=== PATIENT | male | born 1970 | race Caucasian/White ===

== ENCOUNTER → 2019-11-14 | Outpatient (CLI) | payer SELFPAY ==
--- NOTE | 2019-11-14 11:49 | Diagnostic Imaging Report ---
EXAMINATION: Right upper extremity MRI from 11/14/2019. TECHNIQUE: Multiplanar, multisequence non contrast-enhanced MRI of the right upper extremity was accomplished. INDICATION: Right shoulder pain for two years, no known injuries. FINDINGS: Diffuse abnormal signal intensity noted throughout the supraspinatus tendon at the greater tuberosity. This appears to represent a deep bursal-sided partial-thickness tear. Extension through the articular surface is not visualized. The focal defect measures approximately 13 mm in transverse dimension. The infraspinatus tendon is intact. The subscapularis tendon demonstrates abnormal signal intensity near the lesser tuberosity, most consistent with tendinosis. No full-thickness tear in the region is appreciated. The long head of the biceps tendon lies in the bicipital groove. It appears intact. The biceps tendon anchor is intact. Degenerative signal within the superior labrum is noted with no obvious tears on this noncontrast examination. There is minimal fluid within the subdeltoid subacromial bursa. Muscle volume is preserved. Visualized axilla is unremarkable. IMPRESSION: 1. Deep bursal-sided partial tear of the anterior supraspinatus tendon without definite full-thickness extension. Infraspinatus is intact. 2. Tendinosis of the subscapularis tendon. Other incidental findings, as above. Dictated by: Dictated on workstation # [id number]
== END ==
LOC: RAD 09:02
PROVIDERS: ATTEND Nurse Practitioner
DX: M75.121 Complete rotator cuff tear or rupture of right shoulder, not specified as traumatic (principal); M75.81 Other shoulder lesions, right shoulder
CPT/HCPCS: 73221

== ENCOUNTER 2022-10-20 05:34 | Outpatient (CLI) | payer BC ==
[~2022-10-20] VITALS: Ht 182.8 cm; Wt 90.0 kg
[2022-10-20] MEDS ORDERED: ROPI1TAB PO (15:59)
== END 2022-10-20 16:06 | disposition home or self-care (01) ==
LOC: PREOP 05:34
PROVIDERS: ATTEND Surgery
DX: Z01.818 Encounter for other preprocedural examination (principal)

== ENCOUNTER 2022-10-26 08:58 | Day surgery (SDC) | payer BC ==
[2022-10-26] VITALS (9 sets, daily range): BP systolic 106–130; BP diastolic 66–77
[~2022-10-26] VITALS: Ht 182 cm; Wt 90.0 kg
[~2022-10-26 08:58] MED LIST: ROPI1TAB PO
--- NOTE | 2022-10-26 10:27 | Progress Note-Pre Operative ---
Pre-Operative Progress Note Date of Available H&P: Oct 18, 2022 Date H&P Reviewed: Oct 26, 2022 Time H&P Reviewed: 10:24 History & Physical: H&P Reviewed, Patient Examed, No changes noted Pre-Operative Diagnosis: Right shoulder basal cell CA, site marked THA CENTENO DO Oct 26, 2022 10:26
[2022-10-26] MEDS ORDERED: ceFAZolin INJECTION 2,000 MG ONE (10:44)
[2022-10-26] MEDS ORDERED: NS (IVPB) 50 ML ONE (10:44)
[2022-10-26] MEDS ORDERED: ceFAZolin INJECTION 2,000 MG in NS (IVPB) 50 ML IV ONE (10:45)
[2022-10-26] MEDS: LACTATED RINGERS 1,000 ML IV PRN ×2 (10:48→11:51)
[2022-10-26] MEDS ORDERED: BUP/EPI 0.5% 1:200,000 (SENSORCAINE) 30 ML VIAL ONE (10:49)
[2022-10-26] MEDS ORDERED: proPOfol 200 MG/20 ML (DIPRIVAN) VIAL IV ONE (11:04)
[2022-10-26] MEDS ORDERED: fentaNYL INJ 100 MCG/2 ML AMP ONE (11:04)
[2022-10-26] MEDS ORDERED: SEVOFLURANE (ULTANE) 15 ML INHAL SOLN ONE ×2 (11:04→11:58)
[2022-10-26] MEDS ORDERED: MIDAZOLAM 2 MG/2 ML (VERSED) VIAL ONE (11:04)
[2022-10-26] MEDS ORDERED: LIDOCAINE PF 2% 5 ML (XYLOCAINE) VIAL ONE (11:04)
[2022-10-26] MEDS ORDERED: ONDANSETRON 4 MG/2 ML (SDV) Z0FRAN ONE (11:04)
[2022-10-26] MEDS ORDERED: SUCCINYLCHOLINE INJ 20 MG/1 ML 10 ML VIAL ONE (11:58)
[2022-10-26] MEDS ORDERED: PHENYLEPHRINE 100 MCG/ML 10 ML (ANESTHESIA) SYR ONE (11:58)
--- NOTE | 2022-10-26 12:07 | Progress Note-Post Operative ---
Post-Operative Progess Note Surgeon (s)/Research Assistant Member (s) Surgeon THA CENTENO DO Research Assistant Member: JOYCE Wood Pre-Operative Diagnosis Right shoulder basal cell CA, site marked Post-Operative Diagnosis same pending path Procedure & Operative Findings Date of Procedure 10/26/22 Procedure Performed/Findings Wide Excision of right shoulder Basal Cell CA; 12.1 x 3.7cm incision Anesthesia Type LMA Estimated Blood Loss Estimated blood loss (mL): scant Specimens/Packing Specimens Removed right shoulder basal cell ca THA CENTENO DO Oct 26, 2022 12:07
[2022-10-26] MEDS ORDERED: TRM50T PO (12:09)
--- NOTE | 2022-10-26 12:10 | Discharge Inst-Surgical ---
Discharge Inst-Surgical Depart Medication/Instructions New, Converted or Re-Newed RX: Transmitted to Pharmacy Patient Instructions Follow up Appt: Make appointment for 1 week. [phone] Instructions: No lifting greater than 20 pounds. No strenuous activity. May shower in 24 hours, no tub bath or soaking. Use incentive spirometer at home as directed. No Smoking Skin/Wound Care: May remove bandages in am. You need to leave the sutures in place and come in to the office to have them removed. Symptoms to Report: Appetite Changes, Extremity Discoloration, Numbness/Tingling, Swelling Increased, Bleeding Excessive, Eyesight Changes, Pain Increased, Urine Color Change, Constipation(Persistent), Fever over 101 degree F, Pain/Pressure in chest, Urinating Difficulty, Cough Up/Vomit Blood, Heart Beat Irreg/Pounding, Pain/Pressure in jaw, Cramps in feet or legs, Lightheadedness, Pain/Pressure in shoulder, Diarrhea(Persistent), Memory Changes Suddenly, Questions/Concerns, Weight gain consecutive days, Dizziness/Fainting, Nausea/Vomiting, Shortness of Breath, Weight gain over 2 pounds If questions or concerns contact your physician Or seek help at emergency department. Activity Activity as Tolerated: Yes Activity Instructions: Avoid Stress to Incision Driving Instructions: No Driving/Refer to Dr. Atkinson Discharge Diet: No Restrictions Diet After 24 Hours: Clear Liquid if Nauseous If Any Problems/Questions/Issu: Contact Your Physician, Go to Emergency Room Skin/Wound Care Infection Signs and Symptoms: Increased Redness, Foul Odor of Wound, Increased Drainage, Skin Itchy or Has a Rash, Increased Swelling, Temperature Above 101 F Bathing Instructions: Shower Stitches/[place]/Dermabond Dis: Care of Stitches THA CENTENO DO Oct 26, 2022 12:10
[2022-10-26] MEDS ORDERED: BUP/EPI 0.5% 1:200,000 (SENSORCAINE) 30 ML VIAL INJ ONE (12:11)
[2022-10-26] MEDS ORDERED: ONDANSETRON 4 MG/2 ML (SDV) Z0FRAN IVP PRN (12:15)
[2022-10-26] MEDS ORDERED: morphine INJ 10 MG/ML 1ML (SYR OR VIAL) IVP ONE (12:15)
[2022-10-26] MEDS ORDERED: HYDROmorphone 2 MG/ML VIAL (DILAUDID) IV ONE (12:15)
--- NOTE | 2022-10-26 14:26 | Anesthesia-General Post-Op ---
General Patient Condition Mental Status/LOC: Same as Preop Cardiovascular: Satisfactory Nausea/Vomiting: Absent Respiratory: Satisfactory Pain: Controlled Complications: Absent Post Op Complications Complications None Follow Up Care/Instructions Patient Instructions None needed. Anesthesia/Patient Condition Patient Condition Patient was doing well after the procedure with no complaints, stable vital signs, no apparent adverse anesthesia problems. No complications reported per nursing. TAZ MCCRACKEN 21, 2023 14:26
--- NOTE | 2022-10-26 19:44 | OPERATIVE REPORT ---
DATE OF SERVICE: 10/26/2022 PREOPERATIVE DIAGNOSIS: Right shoulder basal cell cancer. POSTOPERATIVE DIAGNOSIS: Right shoulder basal cell cancer, pending pathology. PROCEDURE: Wide excision, right shoulder basal cell cancer measuring approximately 12.1 x 3.7 cm. SURGEON: Phillip Verma DO CUFF SETTER LOCKSTITCH: VICTORINA Wood. ANESTHESIA: LMA. BLOOD LOSS: Scant. SPECIMEN: Right shoulder basal cell cancer. FLUIDS: Per Anesthesia. POSTOPERATIVE CONDITION: Stable. INDICATIONS FOR PROCEDURE: The patient is a 52-year-old male who had a mass on his right shoulder, had a previous biopsy came back as basal cell cancer, now needs wide local excision for this. FINDINGS: The patient had a wide local incision. The specimen was marked short superior stitch, long lateral stitch. PROCEDURE NOTE: After informed consent was obtained.: The patient was brought to the operating room and placed on the table in left lateral decubitus position. He was administered IV sedation. He had an LMA placed. He was sterilely prepped and draped in normal fashion. Local lidocaine used to infiltrate the skin around this mass had drawn an elliptical lines on there. We are going to go widely to excise this basal cell cancer. This measured about 12.1 cm x about 3.7 cm infiltrated under this area with local as well as then around it. Then, using a #15 blade, made incision carried down through the skin into the subcutaneous tissue, then deepened down to subcutaneous tissue with electrocautery to the subcutaneous fat and then removed this mass en bloc sutured superiorly with a short stitch of silk and then a long lateral stitch to abigail this. I undermined the edges, about a centimeter with Bovie electrocautery to be able to bring this together. I then sutured the soft tissue closed with #5 vertical mattress sutures and [id number] simple interrupted sutures. This held together nicely. Area was washed, dried dressing placed. The patient tolerated the procedure. Sponge and needle count correct at the the end as the patient. Job ID: [id number] DocumentID: [id number] Dictated Date: 10/26/2022 12:14:51 Assistant At Surgery Date: 10/26/2022 19:43:00 Dictated By: PHILLIP VERMA DO
== END 2022-10-26 13:30 | disposition home or self-care (01) ==
LOC: SDC 08:58
PROVIDERS: ATTEND Surgery
DX: C44.612 Basal cell carcinoma of skin of right upper limb, including shoulder (principal); K21.9 Gastro-esophageal reflux disease without esophagitis; F17.210 Nicotine dependence, cigarettes, uncomplicated; Z28.310 Unvaccinated for COVID-19
CPT/HCPCS: 87081